=== PATIENT | female | born 1985 | race Caucasian/White ===

== ENCOUNTER 2024-09-28 01:50 | Outpatient (CLI) | payer MEDICAID, SELFPAY ==
--- NOTE | 2024-09-28 09:15 | DI.MRI_ITS ---
Exam(s) MR LOWER JOINT LT WO EXAM: MR LOWER JOINT LT WO CLINICAL HISTORY: LEFT KNEE PAIN,PATELLAR INSTABILITY LT KNEE,M25.362. TECHNIQUE: Multiplanar multisequence MRI was performed. COMPARISON: CR XR KNEE COMPLETE MIN 4V LT from 09/30/2023 FINDINGS: BONES: There is no fracture or contusion pattern. JOINTS: There is a small cartilage defect overlying the distal femur at the patellofemoral joint. There is mild thinning of the articular cartilage overlying the patella. There is small cartilage defect overlying the medial femoral condyle. There is a small joint effusion. TENDONS: Extensor mechanism: Unremarkable. Medial retinaculum: Unremarkable. Lateral retinaculum: Unremarkable. Popliteus: Unremarkable. MUSCLES: Unremarkable. MENISCI: The medial meniscus is unremarkable. The lateral meniscus is unremarkable. SOFT TISSUES: Unremarkable. LIGAMENTS: Anterior Cruciate: Unremarkable. Posterior Cruciate: Unremarkable. Medial Collateral:Unremarkable. Lateral Collateral: Unremarkable. OTHER: IMPRESSION: 1. Chondromalacia seen of the patellofemoral joint. 2. No evidence of a meniscal or ligament tear. 3. Small joint effusion. DATA REPOSITORY:
== END 2024-09-28 02:10 ==
LOC: DI 01:50
PROVIDERS: PCP Specialist/Technologist Athletic Trainer; Visit Provider Student in an Organized Health Care Education/Training Program
DX: M25.362 Other instability, left knee (principal)
CPT/HCPCS: 73721

== ENCOUNTER 2024-10-28 06:18 | Day surgery (SDC) | payer MEDICAID, SELFPAY ==
[2024-10-28] VITALS (42 sets, daily range): BP systolic 63–116; BP diastolic 33–85; PULSE 47–98; RESP 5–23; TEMP 36.2–37.5; O2SAT 92–100; BMI 33.5
--- NOTE | 2024-10-28 07:08 | W.PM.DSUDISC ---
Date of service: 10/28/24 Discharge Plan Disposition Patient Disposition: Home Condition: Stable Discharge Details Attending Provider: Bobby Kerr Primary Care Provider: Dhruv Bhatti Home Meds and New Rx's Prescriptions: New naproxen 250 mg tablet 250 - 500 mg PO BID PRN (Reason: moderate pain and swelling) Qty: 40 0RF oxycodone 5 mg tablet 5 - 10 mg PO .q4-6h MDD 30 mg PRN (Reason: severe pain) Qty: 18 0RF aspirin 81 mg capsule 81 mg PO DAILY 14 Days Qty: 14 0RF Continued phentermine 30 mg capsule 30 mg PO DAILY Rx Instructions: must administer 2 hours after breakfast lorazepam 1 mg tablet 1 mg PO DAILY PRN albuterol sulfate [Ventolin HFA] 90 mcg/actuation HFA aerosol inhaler 2 puff inhalation Q6H PRN ferrous gluconate 324 mg (37.5 mg iron) tablet 324 mg PO HS epinephrine [EpiPen] 0.3 mg/0.3 mL auto-injector 0.3 mg IM Q5-15M PRN Rx Instructions: do not exceed 3 doses per episode Discontinued ibuprofen 600 mg tablet 600 mg PO Q8H PRN Discharge Instructions Additional Instructions: Surgery: Left knee arthroscopy with chondroplasty (trochlea & medial femoral condyle), small medial & lateral partial medial meniscectomy, and open medial patellofemoral ligament repair 10/28/24 Activity: Protected weightbearing with crutches for about 4 weeks. Range of motion 0-90 degrees for 6 weeks. Maximum flexion 120 degrees for 8 weeks then progress to full. Restore full knee extension as soon as possible. Wiggle toes and ankle pumps to increase circulation. Elevation to minimize swelling and discomfort. Closed?chain strengthening after 10 weeks, eccentric after 3+ months. A physical therapy prescription will be sent electronically to start about 3 weeks. Recommend avoiding pivoting, deep squatting, and kneeling for about 4 months. Prescriptions: Aspirin 81 mg take 1 daily to prevent a blood clot for 14 days, starting tomorrow morning Naproxen 250 mg take 1-2 every 12 hours with a meal as needed for moderate pain Oxycodone 5 mg take 1-2 every 4-6 hours as needed for severe pain You may use [id number] Tylenol (acetaminophen) as needed for mild pain. These pain medications may be taken all at once or in different combinations as needed. Also, recommend Colace (docusate) as a stool softener as surgery and pain medicine cause constipation. You may try [id number] diphenhydramine (Benadryl) 25-50 mg nightly as a sleep aid Dressings: Leave dressing in place for 3-4 days. May then remove and leave open to air or cover incisions with Band-Aids. Leave the sticky Steri-Strips in place until they fall off orremove them after you shower. May shower after 5 days. Do not soak the knee underwater until everything is healed and sealed. Follow-up: 10-[address] Kerr You may take off the leg compression stockings this evening at home. You may also leave them on a few days longer if you have a history of leg swelling or edema. Let us know right away if you develop any redness, drainage, fevers, chest pain, or trouble breathing. Do not drink alcohol or drive for at least 24 hours after anesthesia. Please call the office during business hours with any questions or concerns. Discharge Orders Discharge Orders: Discharge Order (Routine); Ordered 10/28/24 Ordered By: Maddi Solorio DS: Diagnosis Discharge Diagnosis (1) Patellar instability of left knee: Status: Acute (2) Chondromalacia of left patellofemoral joint: Status: Acute
--- NOTE | 2024-10-28 07:15 | ROE_ITS ---
Operative Note Operative Note PRE-OP DIAGNOSIS: Left knee 1. Trochlea cartilage tear 2. Recurrent patellar instability POST-OP DIAGNOSIS: same PROCEDURE: Left knee 1. Chondroplasty, CPT #23469: Trochlea 2. Partial medial meniscectomy, CPT #76262 3. Open medial patellofemoral ligament avulsion repair, CPT #33104 SURGEON: Bobby Kerr SAMPLE MAKER: Maddi Solorio ANESTHESIA TYPE: Local By Surgeon and General LMA/ETT Refer to Anesthesia Record ESTIMATED BLOOD LOSS: 5 PATHOLOGY: none sent TOURNIQUET TIME: 0 Patient was transported to: PACU Patient's condition: stable Indications: Please see complete medical record for details. Findings: Exam under anesthesia: Full range of motion, stable Kendy, stable varus valgus. Normal patellar tracking with probable increased lateral translation and full extension, but excellent stability in the trochlea past 30 degrees flexion. Significant patellofemoral mechanical symptoms on early to mid fl exion. Arthroscopic findings: About 5 x 20 mm high grade near full-thickness cartilage lesion with loose unstable cartilage flaps and edges and some small cartilage loose bodies in other parts of the knee likely from this injury/donor site. More mild medial patellar facet chondromalacia. Moderate diffuse medial femoral condyle posterior aspect chondromalacia. Small posterior horn medial meniscus white zone tearing and small lateral meniscus body white zone edge tearing as well. Preserved lateral cartilage. Intact ACL. Procedure Description: In the operating room, general anesthesia was induced. The patient was positioned supine on the operating room table. All bony prominences were well- padded. Preoperative antibiotics were administered. The knee was prepped and draped in the usual sterile fashion. The correct patient, procedure, and side of the procedure were all verified prior to incision. Exam under anesthesia was performed. 10 cc of 0.25% bupivacaine containing epinephrine was infiltrated about the planned anteromedial and anterolateral knee arthroscopy portals. An additional 20 cc was infiltrated about the medial patellar margin for the later open procedure. The portals were established and a complete diagnostic arthroscopy was performed with relevant findings detailed above. The mechanical shaver was used to remove small loose cartilage bodies from various compartments of the knee joint before localizing the cartilage lesion and about full extension. Working through both the anterior and lateral portals and changing extension to mild flexion and hyperextension, the cartilage lesion was probed. The loose cartilage flap edges were trimmed with meniscus biters, more appropriate margins established with curved curettes, and the torpedo shaver used to final contour and smooth the cartilage around the margin. The bed had fibrinous material possibly fibrocartilage, no exposed bone, and this layer was left intact. The torpedo shaver was also used to lightly debride cartilage fraying in the medial compartment. The medial and lateral meniscus both had small white zone tears as described above which were readily treated smooth resected contoured with the torpedo shaver. The knee was copiously irrigated with arthroscopic fluid until there was a clear effluent before being drained of all fluid. A small longitudinal medial patellar incision was made with the medial aspect of the patella having been localized with an 18-gauge needle at the area of apparent retinacular separation viewed arthroscopically. Medial retinaculum was split full-thickness about the length of the patella, and was softened and thinned at the medial aspect of the patella with the capsule split in quite readily as well. A sleeve of retinacular tissue was left on the patella. The MPFL and medial retinacular tissue was manrique on the patellar and femoral sides just wide of the injury zone. The medial margin of the patella was inspected with some softening, which was removed with a rongeur and also stimulate some bone and soft tissue healing at this site. Given the good tissue and only slight patellar instability, decision was made to proceed with a medial imbrication type repair. Also wanted to avoid any over constraint and increasing stress on the central to medial trochlear lesion and medial patellar chondromalacia while balancing the need for improved patellar stability. The deep capsule layer was then secured with suture tape horizontal mattress which was brought up underneath the medial retinacular sleeve and secured nicely. The medial retinacular sleeve was then oversewed the lateral retinacular layer with both these repairs achieving a few millimeters of compressed tissue. Lastly these medial layers were final secured using suture tape running from distal to proximal with excellent repair strength. The patella was examined and had more symmetrical and likely preinjury motion and definitively improved less patellar translation. There was no patellofemoral mechanical symptoms or significant restraint to medial lateral motion. Subcutaneous layers were copiously irrigated and then closing 2-0 Monocryl buried erupted. The anteromedial and anterolateral portals were closed in 3-0 Monocryl in a buried interrupted fashion. Mastisol, Steri-Strips, and 4 x 4 gauze were applied over the incisions. The knee was then wrapped gently with an HERSON comressive bandage. The patient awoke from anesthesia without complication and was transferred to the recovery room in a stable condition. Date of Procedure: 10/28/24
--- NOTE | 2024-10-28 07:21 | W.ANESPRE ---
General Info Date of Service Date Performed: 10/28/24 Height: 5 ft 6 in Weight: 94.2 kg Body Mass Index (BMI): 33.5 Surgical Procedure: Operation Date: 10/28/24 07:40 Proposed Procedure Side Surgeon p Knee Arthroscopy,Likely Trochlear Chondroplasty, Open Medial Patellofemoral Ligament Repair Left Bobby Kerr MD Meds Allergies and Home Medications Allergies Allergy/AdvReac Type Severity Reaction Status Date / Time bee venom protein (honey bee) Allergy Severe Anaphylaxis Verified 10/28/24 06:38 sodium lauryl sulfate Allergy Severe Other (See Verified 10/28/24 06:41 Comment) morphine Allergy Intermediate VOMITING Verified 10/28/24 06:38 Penicillins Allergy Intermediate HIVES Verified 10/28/24 06:38 topiramate (From Topamax) Allergy Intermediate Other (See Verified 10/28/24 06:38 Comment) ketorolac (From Toradol) AdvReac Unknown Unknown Verified 10/28/24 06:41 Sulfa (Sulfonamide AdvReac Unknown Other (See Verified 10/28/24 06:41 Antibiotics) Comment) Home Medication ?Medication ?Instructions ?Recorded albuterol sulfate 90 mcg/actuation 2 puff inhalation Q6H PRN 09/07/24 aerosol inhaler (Ventolin HFA) ferrous gluconate 324 mg (37.5 mg 324 mg PO HS 09/07/24 iron) tablet lorazepam 1 mg tablet 1 mg PO DAILY PRN 09/07/24 phentermine 30 mg capsule 30 mg PO DAILY 09/07/24 epinephrine 0.3 mg/0.3 mL 0.3 mg IM Q5-15M PRN 10/24/24 injection, auto-injector (EpiPen) aspirin 81 mg capsule 81 mg PO DAILY prevent blood clot 10/28/24 14 days #14 caps naproxen 250 mg tablet 250 - 500 mg (1 - 2 x 250 mg) PO 10/28/24 BID PRN moderate pain and swelling #40 tabs oxycodone 5 mg tablet 5 - 10 mg (1 - 2 x 5 mg) PO .q4-6h 10/28/24 PRN severe pain #18 tabs Current Visit Medications: Current Medications Generic Name Dose Route Start Last Admin Trade Name Freq PRN Reason Stop Dose Admin Ringer's Solution 1,000 mls @ 30 mls/hr 10/28/24 06:00 IV 10/28/24 23:59 INFUSION JOSSY Cefazolin Sodium/Dextrose 2 gm in 50 mls @ 100 mls/hr 10/28/24 06:00 Ancef Duplex IVPB 10/28/24 23:59 PREOP JOSSY Tranexamic Acid/Sodium Chloride 1,000 mg in 100 mls @ 600 mls/hr 10/28/24 06:00 IVPB 10/28/24 23:59 PREOP JOSSY IV Miscellaneous Supplies 1 each 10/28/24 06:00 Iv Access IV 10/28/24 23:59 DIRECTED JOSSY Oxycodone HCl 0 mg 10/28/24 07:08 Oxycodone 5 Mg Tab PO 11/27/24 07:07 Q3H PRN PRN Pain Sodium Chloride 0 ml 10/28/24 06:00 Normal Saline Flush 10 Ml Syr IV 10/28/24 23:59 PRN PRN Sodium Chloride 0 ml 10/28/24 06:00 Normal Saline 10 Ml Vial IJ 10/28/24 23:59 DIRECTED PRN Sterile Water 0 ml 10/28/24 06:00 Water,Injection,Sterile 10 Ml Vial IJ 10/28/24 23:59 DIRECTED PRN PFSH Active Problems Active Problems: Problem Status Onset Code Anemia Chronic D64.9 Chondromalacia of left patellofemoral joint Acute M22.42 Patellar instability of left knee Acute M25.362 Medical History Medical History Polyarthralgia Patent foramen ovale F/U @ [facility] in 2021 told her it was not a cause for concern Obsessive compulsive disorder Obesity Mixed anxiety and depressive disorder Migraine Intestinal malabsorption Insomnia History of alcohol abuse Fatigue Cervical intraepithelial neoplasia grade 1 Axillary lymphadenopathy Attention deficit disorder with hyperactivity History of atrial fibrillation Per pt. states this was during last Aortic incompetence Surgical History Surgical History S/P removal of right ovary Status post surgical removal of both fallopian tubes Edgar teeth removed History of cholecystectomy History of section Tobacco Smoking/Tobacco Use Status: Current every day Tobacco Type: smokeless tobacco Alcohol Alcohol Intake: former Substance Use Substance use: Never Substance use type: former substance user Vital Signs and Lab Results Vital Signs Most Recent Vital Signs in EMR: Most Recent Vital Signs Temp Pulse Resp BP Pulse Ox 36.4 C L 65 16 113/85 99 10/28/24 06:22 10/28/24 06:22 10/28/24 06:22 10/28/24 06:22 10/28/24 06:22 Point of Care Results Point of Care Results: POC- Test(urine) Negative 10/28/24 07:03 Anesthesia Assessment and Plan Anesthesia History Personal History: PONV Family History: No Family History of Anesthesia Complications and Other Exercise Tolerance Exercise Tolerance: Metabolic Equivalents>4 Pertinent Negatives Pertinent Negatives: No Symptoms of GERD Cardiac & Pulmonary Exam Cardiac Exam: Normal S1/S2 Heart Sounds Pulmonary Exam: Clear Bilateral Breath Sounds Implantable Cardiac Device Does patient have a Pacemaker or an ICD?: No Airway Exam Known Difficult Airway: No Mallampati Class: 2 Mouth Opening: Normal (> 3cm) Thyromental Distance: Greater than 3 cm Neck Range of Motion: Full ROM Neck Circumference: Normal Teeth Condition: Normal Dentition ASA Classification ASA Score: ASA 2 Emergency Case?: No NPO Status NPO Status: NPO Clears >2 hours, Solids >8 hours Status Status: Negative HCG Anesthesia Plan Resuscitation Status: Full Code Anesthesia Technique: General Anesthesia Airway Planned: Endotracheal Tube Monitors Used: Standard Monitors and SedLine
[2024-10-28] MEDS: Lactated Ringers 1,000 ML 30 ML IV (07:25)
[2024-10-28] MEDS: ceFAZolin 2 GM/50 ML BAG IVPB (07:40)
[2024-10-28] MEDS: TRANEXAMIC ACID/SOD. CHL. 1,000 MG/100 ML BAG 600 MG IVPB (07:50)
[2024-10-28] MEDS: EPINEPHrine 10 MG/10 ML ML (08:06)
[2024-10-28] MEDS: Bupivacaine 0.25% Pres-Free W/EPI 30 ML VIAL (08:07)
[2024-10-28] MEDS: fentaNYL 100 MCG/2 ML VIAL IVP ×2 (09:17→09:29)
[2024-10-28] MEDS: Droperidol 5 MG/2 ML VIAL 0.625 MG IVP (09:26)
[2024-10-28] MEDS: HYDROmorphone 2 MG/ML SYR IVP (09:57)
--- NOTE | 2024-10-28 20:20 | W.ANESPOSTOP ---
Postoperative Evaluation Date, Time and Location Date Performed: 10/28/24 Time Performed: 11:15 Patient Location: Day Surgery Unit Vital Signs Most Recent Imported Vital Signs: Most Recent Vital Signs Temp Pulse Resp BP Pulse Ox 36.2 C L 56 L 16 99/58 L 98 10/28/24 11:01 10/28/24 11:01 10/28/24 11:01 10/28/24 11:01 10/28/24 11:01 Pain Score Most Recent Pain Score: Most Recent Pain Score Pain Level 5 10/28/24 11:20 Assessment Mental Status: Awake (Alert & Oriented to Patient Baseline) Airway and Respiratory Function: Patent airway with normal (patient baseline) respiratory exam Cardiovascular Function: Hemodynamically Stable Hydration Status: Adequately Hydrated Nausea & Vomiting: No Nausea or Vomiting Pain: Pain is tolerable per patient Peripheral Nerve Block: Patient did not receive a nerve block
== END 2024-10-28 11:45 | disposition home or self-care (01) ==
PROVIDERS: PCP Specialist/Technologist Athletic Trainer; Visit Provider Student in an Organized Health Care Education/Training Program
PROC: (CPT 29870; principal; 2024-10-28 07:30)
DX: S83.32XA Tear of articular cartilage of left knee, current, initial encounter (principal); M25.362 Other instability, left knee; M22.42 Chondromalacia patellae, left knee; X58.XXXA Exposure to other specified factors, initial encounter
CPT/HCPCS: 27405; 29881; 81025; J0690; J1100; J1171; J1790; J2003; J2250; J2270; J2405; J2704; J3010